=== PATIENT | male | born 1945 | race Caucasian/White ===

== ENCOUNTER 2022-05-04 17:29 | Inpatient (IN) | payer OTHER, MEDICARE ==
[2022-05-04 18:51] LABS: HEMATOCRIT 46.4 % (35.4-49); HEMOGLOBIN 15.9 G/dL (11.7-16.9); MCH 32.6 pg (25.7-33.7); MCHC 34.2 g/dl (32.0-35.9); MEAN CELL VOLUME 95.5 fl (80-96); MEAN PLT VOLUME 9.9 fl (7.5-11.1); PLATELET COUNT 228.4 10^3/uL (134-434); RBC 4.86 10^6/uL (4.00-5.60); RDW 13.9 % (11.9-15.9); WHITE BLOOD COUNT 9.7 10^3/uL (4.0-10.8)
[2022-05-04 18:58] LABS: ALBUMIN 4.1 g/dl (3.4-5.0); CALCIUM 9.2 mg/dl (8.5-10); CREATININE 0.9 mg/dl (0.55-1.3); TOT PROT 6.6 g/dl (6.4-8.2)
[2022-05-04 23:10] VITALS: BMI 27.9
[2022-05-05 08:52] LABS: ALBUMIN 3.4 g/dl (3.4-5.0); CALCIUM 8.8 mg/dl (8.5-10); CREATININE 0.8 mg/dl (0.55-1.3); TOT PROT 5.7 g/dl (6.4-8.2)
[2022-05-05 09:35] LABS: MAGNESIUM 2.1 mg/dL (1.8-2.4); PHOSPHOROUS 4.3 mg/dl (2.5-4.9)
[2022-05-05] MEDS ORDERED: ATORVASTATIN CA 80 MG TABLET (FP) PO ONE (09:45)
[2022-05-05] MEDS ORDERED: ASPIRIN 325 MG TABLET PO ONE (09:45)
[2022-05-05 09:49] LABS: BASO % 0.8 % (0-2.0); EOS % 1.1 % (0-4.5); HEMATOCRIT 39.7 % (35.4-49); HEMOGLOBIN 13.6 GM/dL (11.7-16.9); LYMPH % 18.6 % (8-40); MCH 32.2 pg (25.7-33.7); MCHC 34.2 g/dl (32.0-35.9); MEAN CELL VOLUME 94.1 fl (80-96); MEAN PLT VOLUME 9.6 fl (7.5-11.1); MONO % 8.5 % (3.8-10.2); PLATELET COUNT 188 10^3/uL (134-434); RBC 4.22 M/mm3 (4.00-5.60); RDW 13.4 % (11.9-15.9); WHITE BLOOD COUNT 7.3 K/mm3 (4.0-10.0)
[2022-05-05] MEDS ORDERED: ENOXAPARIN NA (PORCINE) 40 MG/0.4 ML DISP.SYRIN SQ SCH (10:00)
[2022-05-05 21:00] VITALS: BP 152/58; PULSE 68; RESP 16; TEMP 98.2
== END 2022-05-05 20:35 | disposition home or self-care (01) | DRG 149 ==
LOC: FER 17:29 → FM/S 21:02 → OBSVTOIN 05-05 09:10
PROVIDERS: ADMIT Internal Medicine
DX: H81.10 Benign paroxysmal vertigo, unspecified ear (principal); I10 Essential (primary) hypertension; E78.00 Pure hypercholesterolemia, unspecified; R55 Syncope and collapse; Z85.46 Personal history of malignant neoplasm of prostate; E78.5 Hyperlipidemia, unspecified; G60.8 Other hereditary and idiopathic neuropathies; M47.896 Other spondylosis, lumbar region; M47.812 Spondylosis without myelopathy or radiculopathy, cervical region
CPT/HCPCS: 0241U-QW; 36415; 70450-TC; 70551-TC; 71045-TC-FY; 80053; 80061; 81003; 82607; 83036; 83735; 84100; 84443; 84484; 85025; 85027; 86780; 93005; 93306-TC; 93880-TC; 99285-25; G0378